=== PATIENT | male | born 1965 ===

== ENCOUNTER 2025-09-05 19:34 | Inpatient (IN) | payer MEDICAID, SELFPAY ==
--- NOTE | ~2025-09-05 | CT_ITS ---
CLINICAL HISTORY: AMS CT head without contrast Comparison: None provided Findings: No acute intracranial hemorrhage. No midline shift or hydrocephalus. No large arterial territorial infarction by CT accounting for artifacts including beam hardening artifacts about the posterior convexities. Mild motion artifacts present. Bilateral basal ganglia mineralization noted. Cavum septum pellucidum et vergae. Fluid and mucosal thickening of the paranasal sinuses multifocal including multiple ethmoid air cells. Retention cysts of the right maxillary sinus measures 1.8 cm. Small mastoid effusions. No acute skull fracture. Dermal scalp calcifications are multifocal. Previous cataract procedure changes noted. IMPRESSION: 1. No acute intracranial abnormality by CT. This document has been electronically signed by: Marcel Rosario MD on 09/06/2025 00:10:03
[2025-09-05 19:41] VITALS: BP 158/85; PULSE 84; RESP 20; TEMP 36.6; O2SAT 96; BMI 22.9
--- NOTE | 2025-09-05 20:15 | PC.NURSE ---
Addendum entered by Linda Sheppard RN 09/05/25 23:18: Correction to 23:18 Note. Patient DOES have personal belongings. Secured in Locker #3. Original Note: Patient changed over in the POD into appropriate attire. No personal belongings. Presents with flat affect. When asked what brought him in, pt states I lost my memory. Oriented to self. Denies SI/HI/AVH, but appears to be responding to internal stimuli. Displays inappropriate boundaries, standing very closely to t/w and peers on unit. When asked about medications, patient initially stated I don't remember what I take , but then stated I don't take anything. Denies current pain/discomfort. Denies current medical concerns. Denies allergies. Patient does currently seem to be a poor historian d/t current condition. Does not present as aggressive. Patient is currently kneeling in room and staring at the wall. [address] checks in [address]. Plan for medically clearance and CARE team.
[2025-09-05 21:08] LABS: MANUAL DIFF FLAG NO
[2025-09-05 21:18] LABS: Hematocrit 43.1 % (42.0-52.0); Hemoglobin 14.5 g/dl (14.0-18.0); Imm Gran Abs Auto 0.05 X10*3/uL (0.00-0.03); Imm Gran Pct Auto 0.3 % (0.0-0.4); Lymphocytes Absolute Auto 1.4 X10*3/uL (1.2-4.9); Mean Corpuscular HGB Conc 33.6 g/dl (31.0-36.0); Mean Corpuscular Hemoglobin 29.1 pg (27.0-33.0); Mean Corpuscular Volume 86.4 fL (80.0-98.0); NRBC Abs Auto 0.000 X10*3/uL (0.0-0.012); NRBC Pct Auto 0.0 /100WBC (0.0-0.2); Platelet Count 346 X10*3/uL (160-400); Red Blood Count 4.99 X10*6/uL (4.60-5.80); White Blood Count 14.3 X10*3/uL (4.8-10.8)
[2025-09-05 21:38] LABS: Acetaminophen LAB < 3 mcg/mL (<30); Alanine Aminotransferase 28 U/L (0-40); Albumin Level 5.2 g/dL (3.5-5.0); Alkaline Phosphatase 79 U/L (39-117); Anion Gap 15 (12-20); Aspartate Amino Transferase 43 U/L (5-37); Blood Urea Nitrogen 29 mg/dL (9-16); Calcium 9.8 mg/dL (8.4-10.2); Carbon Dioxide 26 mmol/L (22-29); Chloride 105 mmol/L (96-108); Creatinine Clr Calc Pharmacy 43.4; Estimated Glomerular Filt Rate 42; Potassium 4.3 mmol/L (3.3-5.1); Salicylate < 5.0 mg/dL (15-30); Sodium 142 mmol/L (135-145); Total Protein 8.8 g/dL (6.5-8.0)
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
[2025-09-05 22:55] LABS: Appearance Urine Clear; Glucose Urine UA Negative (Negative); PH 5.5 (5.0-9.0); Specific Gravity - Urine >= 1.030 (1.005-1.025); UMIC TRIGGER UACC YES
[2025-09-05 23:09] LABS: Cannabinoid Screen Urine Not Detected (Not Detect)
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
--- NOTE | 2025-09-06 01:24 | PC.NURSE ---
Patient presents as disorganized with tangential speech. Observed in room, ripping pieces of paper, banging head on the wall, and responding to internal stimuli. BRUCE Rodrigues aware, order for PO 5mg Haldol and 2mg Ativan obtained/administered. With great effect, patient is now resting comfortably. 15 minute checks ongoing. Will continue to monitor for safety. Plan of care ongoing.
--- NOTE | 2025-09-06 08:03 | PC.NURSE ---
Assumed care, report received. Pt is sleeping, he is brought breakfast.
[2025-09-06 09:08] VITALS: BP 125/62; PULSE 77; RESP 12; TEMP 36.4; O2SAT 99
--- NOTE | 2025-09-06 09:22 | ECG_ITS ---
Test Reason : R/O PROLONGED QT Blood Pressure : */* mmHG Vent. Rate : 103 BPM Atrial Rate : 103 BPM P-R Int : 170 ms QRS Dur : 68 ms QT Int : 320 ms P-R-T Axes : 76 68 57 degrees QTcB Int : 419 ms Sinus tachycardia Right atrial enlargement Borderline ECG No previous ECGs available Referred By: Amado Sheriff Electronically Signed By: ROQUE RANGEL MD
--- NOTE | 2025-09-06 09:54 | MHC.CARE ---
Pt will be an inpatient bedsearch.
--- NOTE | 2025-09-06 10:16 | PC.NURSE ---
Pts brother arrives for a visit, he states his brother has not been taking any medications for a long time and cannot remember what he took int he past. Pt asks to take a shower, and an EKG is obtained. Pt is distracted at times and slow to answer questions
--- NOTE | 2025-09-06 10:31 | MHC.EDTECH ---
EKG delayed due to patient being in the shower. RN aware
--- NOTE | 2025-09-06 11:59 | MHC.EDTECH ---
Patient flipped breakfast tray off of table and scattered trash throughout room. This tech spoke with patient and he seemed calm and agreeable to picking up his items. When this tech attempted to remove tray with trash from room, patient asked to keep it, when asked why, he stated I just feel like I need to have it to help me. Items left in room patient then took everything off his tray and placed it neatly on his bed and began to smear butter on his sheets.
[2025-09-06 14:10] VITALS: BP 147/83; PULSE 111; RESP 16; TEMP 36.6; O2SAT 98
--- NOTE | 2025-09-06 16:17 | MHC.EDTECH ---
Patient shredding his trash from breakfast and lunch, does not want to throw it away. Calm in behavior but adamant that he needs his trash to help him feel better. Rn aware of behavior and okay with him continuing on, however, at RN's request withhold additional paper, and cups to avoid more shredding.
--- NOTE | 2025-09-06 16:48 | PHA.MEDREC ---
Addendum entered by Wolfgang Espinosa, PharmD 09/06/25 17:49: MED REC CHECKED BY [facility] Original Note: Pharmacy Consult ? Medication Reconciliation Pharmacy reviewed med rec done by nursing. No Known Home Meds confirmed; claims match.
--- NOTE | 2025-09-06 17:04 | PC.NURSE ---
Pt has spent time today shredding paper, he tipped his mattress up against the wall. He has tossed his food tray onto the floor, he has remained calm and easily redirected.
[2025-09-06] MEDS: guaiFENesin LA 600 MG TAB.ER.12H PO (17:45)
--- NOTE | 2025-09-06 23:00 | PC.NURSE ---
assumed care of pt at this time
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
[2025-09-07 01:13] VITALS: BP 150/86; PULSE 101; RESP 18; TEMP 37; O2SAT 97
--- NOTE | 2025-09-07 01:14 | PC.NURSE ---
patient up to bathroom, in the bathroom for extended period of time TW went to check on patient. Pt reported he was not going to the bathroom but trying to calm himself down. TW asked patient to come back to his room and patient agreed. vitals obtained at this time. Patient reporting anxiety however declined medications from TW reporting he does not need medications to help. Patient back in room sitting in chair.
--- NOTE | 2025-09-07 01:15 | MHC.EDTECH ---
pt is continuously asking to sit on the floor in the hallway and by the exit door, which I and staff told him no unless he is in his room. when I finally asked why he keeps asking to sit on the floor pt then stated so he can get back to himself. pt seems to be restless.
--- NOTE | 2025-09-07 07:38 | PC.NURSE ---
Assumed care of patient at 0645, patient appears to be in no apparent distress this am, ambulating with steady gait around BH pod, currently sitting in common area offering no complaints to this RN. Continue plan of care for IPLOC
[2025-09-07 08:05] VITALS: BP 165/68; PULSE 97; RESP 18; TEMP 36.7; O2SAT 100
--- NOTE | 2025-09-07 13:45 | PC.NURSE ---
Pt had brother Say visit for approximately 2 hours, no apparent distress is noted at this time
--- NOTE | 2025-09-07 18:59 | PC.NURSE ---
This resume writer assumed care of this Pt at this time. Pt awake, sitting in bed eating dinner tray.
[2025-09-07 21:40] VITALS: BP 156/79; PULSE 87; RESP 20; TEMP 36.4; O2SAT 97
--- NOTE | 2025-09-07 22:00 | PC.NURSE ---
Home meds sent to pharmacy
[2025-09-08 06:19] VITALS: BP 147/87; PULSE 70; RESP 17; TEMP 36.6; O2SAT 98
--- NOTE | 2025-09-08 07:28 | PC.NURSE ---
Assumed care of patient at 0645, patient appears to be in no apparent distress this am, wandering around BH pod, calm and cooperative, offering no complaints to this RN. Per night RN, patient home medications were found in the locker with his belongings. Medications were inventoried and brought to pharmacy, med rec has not been completed still. Medications retrieved from pharmacy, plan for med rec completion this am
[2025-09-08 18:28] VITALS: BP 144/94; PULSE 79; RESP 18; TEMP 36.6; O2SAT 97
--- NOTE | 2025-09-08 22:12 | PC.NURSE ---
Assumed care at 1845. Presents as calm, cooperative, and polite. Made statements such as I'm right handed because the islam yarsanism took my left hand away. Currently utilizing POD headphones listening to music. Adherent to scheduled medications, declined the need for additional PRN's. Denies current pain/discomfort. C/o foot fungus and states I was seen in 2000 for my feet, but I stopped taking care of them. Do you have a pill for that? Upon observation, skin appears dry/calloused to bilateral feet. Provided lotion in a cup to moisturize. Denies SI/HI/AVH. Agreeable to alert staff if feeling unsafe. 15 minute checks ongoing. Continue plan of care for IPLOC.
--- NOTE | 2025-09-09 02:45 | PC.NURSE ---
Patient requested PRN for insomnia, reports he's having difficulty staying asleep and that it's very frustrating. PRN Trazodone utilized, pending effect. Will continue to monitor for safety.
[2025-09-09 06:15] VITALS: BP 151/81; PULSE 68; RESP 18; TEMP 36.6; O2SAT 99
[2025-09-09 16:08] VITALS: BP 132/73; PULSE 92; RESP 18; TEMP 36.5; O2SAT 98
[2025-09-09 16:09] VITALS: BMI 31.2
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
[2025-09-09 20:00] VITALS: BP 132/73; PULSE 89; RESP 20; TEMP 36; O2SAT 99
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
[2025-09-10 08:00] VITALS: BP 131/97; PULSE 85; TEMP 2.1; TEMP 35.7; O2SAT 99
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
[2025-09-10 20:00] VITALS: BP 133/69; PULSE 94; RESP 18; TEMP 36.6; O2SAT 97
[2025-09-11 08:08] VITALS: BP 146/67; PULSE 85; TEMP 36.3; O2SAT 96
[2025-09-11] MEDS: guaiFENesin DM 600/30 1 TAB TAB.ER.12H PO (13:27)
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
[2025-09-11 20:00] VITALS: BP 146/74; PULSE 102; TEMP 37; O2SAT 98
[2025-09-12 07:00] VITALS: BMI 31.6
[2025-09-12 07:59] VITALS: BP 133/70; PULSE 90; RESP 18; TEMP 36.6; O2SAT 96
[2025-09-12 20:00] VITALS: BP 138/69; PULSE 83; TEMP 36.4; O2SAT 99
[2025-09-12] MEDS: guaiFENesin DM 600/30 1 TAB TAB.ER.12H PO (22:20)
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
[2025-09-13] MEDS: guaiFENesin DM 600/30 1 TAB TAB.ER.12H PO ×2 (04:36→13:32)
[2025-09-13 08:00] VITALS: BP 150/78; PULSE 83; RESP 15; TEMP 37; O2SAT 97
[2025-09-13 19:51] VITALS: BP 140/68; PULSE 97; TEMP 36.9; O2SAT 98
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
[2025-09-14] MEDS: guaiFENesin DM 600/30 1 TAB TAB.ER.12H PO ×2 (02:44→16:37)
[2025-09-14 08:00] VITALS: BP 133/72; PULSE 78; TEMP 36.7; O2SAT 98
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
[2025-09-15 08:00] VITALS: BP 137/73; PULSE 79; RESP 15; TEMP 36.4; O2SAT 97
[2025-09-15] MEDS: guaiFENesin DM 600/30 1 TAB TAB.ER.12H PO ×2 (09:18→21:20)
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
[2025-09-15 20:00] VITALS: BP 142/76; PULSE 90; TEMP 36.9; O2SAT 97
[2025-09-16 08:00] VITALS: BP 138/80; PULSE 76; TEMP 37; O2SAT 98
[2025-09-16] MEDS: guaiFENesin DM 600/30 1 TAB TAB.ER.12H PO (18:39)
[2025-09-16 19:50] VITALS: BP 148/79; PULSE 98; RESP 16; TEMP 36.3; O2SAT 95
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
[2025-09-17 08:00] VITALS: BP 140/76; PULSE 95; TEMP 36.6; O2SAT 99
[2025-09-17] MEDS: guaiFENesin DM 600/30 1 TAB TAB.ER.12H PO (08:38)
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
== END 2025-09-17 13:47 | disposition home or self-care (01) | DRG 753 ==
LOC: HO.ED 09-06 07:50 → HO.PM5 09-09 12:30
PROVIDERS: Admitting Provider Psychiatry & Neurology Psychiatry; Emergency Provider Emergency Medicine; Visit Provider Psychiatry & Neurology Psychiatry
DX: F31.9 Bipolar disorder, unspecified (principal); F43.10 Post-traumatic stress disorder, unspecified; J45.909 Unspecified asthma, uncomplicated; G47.00 Insomnia, unspecified; Z79.899 Other long term (current) drug therapy
CPT/HCPCS: 36415; 70450; 80053; 80143; 80179; 80307; 81001; 85025; 93005; 99285; S9485

== ENCOUNTER → 2025-09-05 22:14 | Outpatient (BNV) | payer SELFPAY | PROVIDERS: Emergency Provider Emergency Medicine; Visit Provider Radiology Neuroradiology | DX: R41.82 Altered mental status, unspecified (principal) | CPT/HCPCS: 70450 ==

== ENCOUNTER → 2025-09-06 09:22 | Outpatient (BNV) | payer SELFPAY | PROVIDERS: Emergency Provider Emergency Medicine; Visit Provider Internal Medicine Cardiovascular Disease | DX: I51.7 Cardiomegaly (principal); R00.0 Tachycardia, unspecified | CPT/HCPCS: 93010 ==

== ENCOUNTER → 2025-09-09 12:18 | Outpatient (BNV) | payer SELFPAY | PROVIDERS: Admitting Provider Psychiatry & Neurology Psychiatry; Emergency Provider Emergency Medicine; Visit Provider Nurse Practitioner Family | DX: F29 Unspecified psychosis not due to a substance or known physiological condition (principal) | CPT/HCPCS: 99221 ==

== ENCOUNTER → 2025-09-09 12:18 | Outpatient (BNV) | payer MEDICAID, SELFPAY | PROVIDERS: Admitting Provider Psychiatry & Neurology Psychiatry; Emergency Provider Emergency Medicine; Visit Provider Nurse Practitioner Psychiatric/Mental Health | DX: F31.9 Bipolar disorder, unspecified (principal); F29 Unspecified psychosis not due to a substance or known physiological condition; F43.11 Post-traumatic stress disorder, acute; G47.00 Insomnia, unspecified; J45.909 Unspecified asthma, uncomplicated | CPT/HCPCS: 90792; 99232 ==